=== PATIENT | female | born 1970 | race Caucasian/White ===

== ENCOUNTER 2019-02-11 08:11 | Day surgery (SDC) | payer BC ==
--- NOTE | 2019-02-06 16:53 | HP ---
PREOPERATIVE HISTORY AND PHYSICAL: DATE OF SURGERY/ADMISSION: 02/11/19 [facility] DATE OF OFFICE VISIT/ENCOUNTER: 01/15/19 ATTENDING SURGEON: Kathy Gorman MD * (DICTATED BY CELINA NAVARRO) PROCEDURE: Left wrist de Quervain's tenosynovitis. HISTORY OF PRESENT ILLNESS: This is a 49-year-old female who complains of bilateral wrist pain, worse on the left than on the right, ongoing for over a year and a half. She denies any injury. She denies any numbness or tingling associated with the pain. She thinks may be the pain started as a result of doing some very aggressive yoga. She has failed conservative treatment including physical therapy and cortisone injections. She has been diagnosed with de Quervain's tenosynovitis. She would like to proceed with a surgery for the left wrist at this time in the form of a de Quervain's release. PAST MEDICAL HISTORY: History of angioedema. PAST SURGICAL HISTORY: 1. . 2. [place] teeth extraction. CURRENT MEDICATIONS: Estrogen replacement and progesterone. ALLERGIES: No known drug allergies. FAMILY MEDICAL HISTORY: Diabetes, heart disease, Alzheimer's. 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 She is a former smoker. She quit 3-1/2 years ago. Prior to that, she smoked a pack per day for 20 years. She does admit to smoking marijuana on occasion and she drinks alcohol on occasion. REVIEW OF SYSTEMS: Negative for general, cephalic, cardiovascular, respiratory , GI/, other musculoskeletal, integumentary, endocrine, neurologic and hematologic symptoms. Infectious disease: Negative for MRSA, hepatitis C, HIV. PHYSICAL EXAMINATION GENERAL: Well-developed, well-nourished 49-year-old female, in no acute distress. VITAL SIGNS: Height 5 feet 2 inches, weight 130 pounds, pulse rate 56, blood pressure 100/74. HEENT: Normocephalic, atraumatic. Pupils are equal, round and reactive to light and accommodation. Extraocular movements are intact. NECK: Supple. No palpable lymph nodes. Throat is clear. PULMONARY: Lungs are clear to auscultation bilaterally. No wheezes, rales, or rhonchi. CARDIOVASCULAR: Regular rate and rhythm. S1, S2. No murmurs, rubs, or gallop. No edema. ABDOMEN: Positive bowel sounds, soft, nontender. MUSCULOSKELETAL: On exam of bilateral wrists, on the left, there is mild subcutaneous wasting and a little bit of pigment change in the area of the previous injection. She has significant tenderness to palpation at the radial styloid process on the left, minimal tenderness on the right. Positive Niurka's test on the left, negative on the right. She has good motion in her fingers and wrist motion in flexion and extension is normal. Neurovascular function is intact. NEUROLOGICAL: Alert and oriented x3. Cranial nerves II through XII are intact. Sensation is intact to light touch. IMAGING STUDIES: X-rays AP, lateral and oblique of the left thumb show no bony abnormality, no degenerative arthritis. IMPRESSION: Left de Quervain's tenosynovitis. PLAN: The patient is scheduled to undergo a left wrist de Quervain's release with Dr. Gorman on 02/11/19. She will return to the office 10 days postop for followup and suture removal. A prescription for Ultracet was e-scribed to the patient's pharmacy for postoperative pain management. CELINA NAVARRO [id number]/[facility] #: [id number] MTDJohn
[~2019-02-11 08:11] MED LIST: Buffered Lidocaine 1% SYRIN* 1 ML/SYRINGE INTRADERM ONE; Famotidine IV* 10 MG/ML 2 ML (20 mg) IV ONE; Lactated Ringers 1000 ML Bag* 1,000 ML IV SCH
[2019-02-11] MEDS ORDERED: Famotidine IV* 10 MG/ML 2 ML (20 mg) ONE (08:23)
[2019-02-11] MEDS ORDERED: Midazolam* 1 MG/ML 5 ML VIAL (5 MG) ONE (09:11)
[2019-02-11] MEDS ORDERED: Propofol* 10 MG/ML 20 ML BTL ONE (09:28)
[2019-02-11] MEDS ORDERED: Ketorolac INJ* 30 MG/ML 1 ML VIAL ONE (09:28)
[2019-02-11] MEDS ORDERED: Ondansetron INJ* 2 MG/ML VIAL ONE (09:28)
[2019-02-11] MEDS ORDERED: Lidocaine 2% PF * 5 ML VIAL ONE (09:28)
[2019-02-11] MEDS ORDERED: Acetaminophen TAB* 325 MG PO PRN (09:42)
[2019-02-11 11:12] VITALS: BP 128/76
[2019-02-11] MEDS ORDERED: Lidocaine 1% INJ* 10 MG/ML 30 ML SDV ONE (14:31)
--- NOTE | 2019-02-11 21:08 | OP ---
DATE OF OPERATION: 02/11/19 [facility] DATE OF : 68 SURGEON: Kathy Gorman MD ENGLISH LANGUAGE ARTS TEACHER: CELINA Choi ANESTHESIA: Local MAC. PRE-OP DIAGNOSIS: Left de Quervain's tenosynovitis. POST-OP DIAGNOSIS: Left de Quervain's tenosynovitis. OPERATIVE PROCEDURE: de Quervain's release in the left wrist. ESTIMATED BLOOD LOSS: Zero. TOURNIQUET TIME: Approximately 10 minutes. INDICATIONS FOR PROCEDURE: Livia is a 49-year-old female, who has pain on the radial aspect of her left wrist, which has persisted despite conservative treatment. She presents for de Quervain's release after failing conservative treatment. DESCRIPTION OF PROCEDURE: The patient was brought to the operating room, was given a sedation anesthetic and a local infiltration of 10 cc of 1% plain lidocaine centered at the tip of the radial styloid. The skin of her left upper extremity was prepped and draped in the usual sterile fashion. The hand and forearm were exsanguinated and the tourniquet elevated to 250 mmHg. A longitudinal incision was made centered at the radial styloid and dissected through the subcutaneous tissue down to the first dorsal compartment. Branches of the radial sensory nerve were located and retracted by the surgical consultant , Shelby Herrera. The first dorsal compartment was incised longitudinally, completely releasing the tendons. There were multiple slips of the APL tendon. The wound was irrigated and the skin edges reapproximated with 4-0 nylon suture. The wound was dressed with Xeroform, 4x4, Webril, and an Deon wrap. The patient tolerated the procedure well and was brought to the recovery room in good condition. [id number]/[facility] #: [id number] [facility]
== END 2019-02-11 10:58 | disposition home or self-care (01) ==
LOC: OREAST 08:11
PROVIDERS: ATTEND Orthopaedic Surgery
DX: M65.4 Radial styloid tenosynovitis [de Quervain] (principal); Z87.891 Personal history of nicotine dependence
CPT/HCPCS: J1885; J2250; J2405; J2704

== ENCOUNTER 2019-10-19 11:35 | Emergency (ER) | payer BC ==
[2019-10-19] MEDS ORDERED: Ketorolac INJ* 30 MG/ML 1 ML VIAL IV PUSH ONE (11:53)
--- NOTE | 2019-10-19 11:56 | ED ---
Abdominal Pain/Female - HPI Summary HPI Summary: 49 y/o female presented to [facility] complaining of generalized abdominal pain characterized as "hollow" that has been present since 10/17/19 evening. Patient notes that she has some relief of pain on 10/18/19 but states that the pain returned this morning 10/19/19. The patient notes feeling bloated and nauseous, but has not vomited. She also notes excessive yawning. Urination is normal and stools are loose but otherwise bowel movements are normal. Palpation does not aggravate her abdominal pain. The patient notes that she may suspect an ulcer but has no history of such. - History of Current Complaint Chief Complaint: EDAbdPain Stated Complaint: LOWER ABD PAIN Time Seen by Provider: 10/19/19 11:46 Hx Obtained From: Patient Hx Last Menstrual Period: 1 week ago Onset/Duration: Lasting Days, Still Present Timing: Days Severity Currently: Severe Pain Intensity: 7 Pain Scale Used: 0-10 Numeric Location: Diffuse Character: Other: - "hollow" Associated Signs and Symptoms: Positive: Nausea, Other: - bloating. Negative: Constipation, Urinary Symptoms, Vomiting, Diarrhea - "loose stools" are noted Allergies/Adverse Reactions: Allergies Allergy/AdvReac Type Severity Reaction Status Date / Time No Known Allergies Allergy Verified 02/11/19 08:27 PMH/Surg Hx/FS Hx/Imm Hx Endocrine/Hematology History: Denies: Hx Diabetes, Hx Thyroid Disease Cardiovascular History: Denies: Hx Hypertension, Other Cardiovascular Problems/Disorders Respiratory History: Denies: Hx Asthma, Hx Chronic Obstructive Pulmonary Disease (COPD), Hx Pulmonary Embolism, Other Respiratory Problems/Disorders GI History: Denies: Hx Ulcer, Other GI Disorders History: Reports: Other Problems/Disorders Musculoskeletal History: Reports: Hx Tendonitis - Tenosynovitis left wrist- DeQuervain's Denies: Other Musculoskeletal History Sensory History: Reports: Hx Contacts or Glasses - Contacts and glasses-will wear glasses day of surgery Denies: Hx Hearing Aid Opthamlomology History: Reports: Hx Contacts or Glasses - Contacts and glasses- will wear glasses day of surgery Neurological History: Denies: Other Neuro Impairments/Disorders Psychiatric History: Reports: Hx Anxiety - history of, not recent - Cancer History Hx Chemotherapy: No Hx Radiation Therapy: No - Surgical History Surgery Procedure, Year, and Place: C Section 1993 & 1997. [place] Teeth Extractions (2 teeth) 2019 Hx Anesthesia Reactions: No Infectious Disease History: No Infectious Disease History: Denies: Hx Clostridium Difficile, Hx Hepatitis, Hx Human Immunodeficiency Virus (HIV), Hx of Known/Suspected MRSA, Hx Shingles, Hx Tuberculosis, Hx Known/ Suspected VRE, Hx Known/Suspected VRSA, History Other Infectious Disease, Traveled Outside the [place] in Last 30 Days - Family History Known Family History: Positive: Hypertension - mother, Diabetes - both parents - Social History Alcohol Use: Weekly Alcohol Amount: 1-2 glasses of wine two times a week Substance Use Type: Reports: None Smoking Status (MU): Former Smoker Type: Cigarettes Amount Used/How Often: Smoked for 20 years Length of Time of Smoking/Using Tobacco: 20+ years Have You Smoked in the Last Year: No Review of Systems Positive: Other - excessive yawning Positive: Abdominal Pain - "hollow", Nausea, Other - bloating. Negative: Vomiting, Diarrhea - "loose stools" are noted All Other Systems Reviewed And Are Negative: Yes Physical Exam - Summary Physical Exam Summary: Appearance: The patient is well-nourished in no acute distress and in no acute pain. Skin: The skin is warm and dry, and skin color reflects adequate perfusion. HEENT: The head is normocephalic and atraumatic. The pupils are equal and reactive. The conjunctivae are clear and without drainage. Nares are patent and without drainage. Mouth reveals moist mucous membranes, and the throat is without erythema and exudate. The external ears are intact. The ear canals are patent and without drainage. The tympanic membranes are intact. Neck: The neck is supple with full range of motion and non-tender. There are no carotid bruits. There is no neck vein distension. Respiratory: Chest is non-tender. Lungs are clear to auscultation and breath sounds are symmetrical and equal. Cardiovascular: Heart is regular rate and rhythm. There is no murmur or rub auscultated. There is no peripheral edema and pulses are symmetrical and equal. Abdomen: The abdomen is soft and non-tender. There are normal bowel sounds heard in all four quadrants and there is no organomegaly palpated. Musculoskeletal: There is no back tenderness noted. Extremities are non-tender with full range of motion. There is good capillary refill. There is no peripheral edema or calf tenderness elicited. Neurological: Patient is alert and oriented to person, place and time. The patient has symmetrical motor strength in all four extremities. Cranial nerves are grossly intact. Deep tendon reflexes are symmetrical and equal in all four extremities. Psychiatric: The patient has an appropriate affect and does not exhibit any anxiety or depression. Triage Information Reviewed: Yes Vital Signs On Initial Exam: Initial Vitals Temp Pulse Resp BP Pulse Ox 98.3 F 58 18 126/103 99 10/19/19 11:38 10/19/19 11:38 10/19/19 11:38 10/19/19 11:38 10/19/19 11:38 Vital Signs Reviewed: Yes Procedures - Sedation Patient Received Moderate/Deep Sedation with Procedure: No Diagnostics - Vital Signs Vital Signs Temp Pulse Resp BP Pulse Ox 10/19/19 11:38 98.3 F 58 18 126/103 99 - Laboratory Result Diagrams: 10/19/19 11:58 10/19/19 11:58 Lab Statement: Any lab studies that have been ordered have been reviewed, and results considered in the medical decision making process. - CT abdominal/pelvis CT Interpretation Completed By: Radiologist Summary of CT Findings: IMPRESSION: 1. There is a punctate calcification at the right kidney lower pole but no signs of. hydronephrosis and no renal calculi identified in either ureter or in the urinary bladder. 2. No acute inflammatory change of the gastrointestinal tract within the limitations of a non-IV or oral contrast CT. This report was reviewed by the ED physician. Abdominal Pain Fem Course/Dx - Course Course Of Treatment: Labs were obtained and she was given IV Toradol. Labs returned within normal limits but she did not pain relief and therefore CT scan was obtained. It was generally unremarkable with some suggestion of pelvic venous congestion. I gave her some instructions about pelvic venous congestion however I'm not at all certain that is causing her current two day pain. I recommended symptomatic treatment and close follow-up. - Diagnoses Provider Diagnoses: Abdominal pain Discharge ED - Sign-Out/Discharge Documenting (check all that apply): Patient Departure - dc - Discharge Plan Condition: Stable Disposition: HOME Prescriptions: HYDROcodone/ACETAMIN 5-325 MG* [[place] 5-325 TAB*] 1 tab PO Q6H PRN #20 tab MDD 4 PRN Reason: Pain Ondansetron ODT TAB* [Zofran Odt TAB*] 4 mg PO Q6H PRN #20 tab.odt PRN Reason: Nausea/Vomiting Patient Education Materials: Abdominal Pain (ED) Referrals: Ariana Covarrubias MD [Primary Care Provider] - - Billing Disposition and Condition Condition: STABLE Disposition: Home - Attestation Statements Document Initiated by Christopher: Yes Documenting Scribe: BELLA STRICKLAND Provider For Whom Christopher is Documenting (Include Credential): KARTIK LYNN MD Scribe Attestation: IBELLA, scribed for KARTIK LYNN MD on 10/20/19 at 1448. Scribe Documentation Reviewed: Yes Provider Attestation: The documentation as recorded by the BELLA michel accurately reflects the service I personally performed and the decisions made by me, KARTIK LYNN MD Status of Scribe Document: Viewed
[2019-10-19 12:08] LABS: ABS Eosinophils 0.1 10^3/ul (0-0.6); ABS Lymphocytes 1.4 10^3/ul (1.0-4.8); ABS Monocytes 0.7 10^3/ul (0-0.8); Eosinophil % 0.7 %; Hematocrit 43 % (35-47); Hemoglobin 14.3 g/dL (12.0-16.0); Lymphocyte % 16.8 %; Mean Corpuscular HGB Conc 34 g/dL (31-36); Mean Corpuscular Hemoglobin 32 pg (27-31); Mean Corpuscular Volume 94 fL (80-97); Mean Platelet Volume 8.6 fL (7.4-10.4); Platelet Count 249 10^3/uL (150-450); Red Blood Count 4.54 10^6 /uL (3.70-4.87); Red Cell Distribution Width 13 % (10-15); White Blood Count 8.2 10^3/uL (3.5-10.8)
[2019-10-19 12:29] LABS: ALT 23 U/L (7-52); AST 27 U/L (13-39); Albumin 4.5 g/dL (3.2-5.2); Albumin/Globulin Ratio 1.8 (1-3); Alkaline Phosphatase 56 U/L (34-104); Anion Gap 9 mmol/L (2-11); BUN/Creatinine Ratio 14.8 (8-20); Blood Urea Nitrogen 13 mg/dL (6-24); C Reactive Protein < 1.00 mg/L (<8.01); CO2 Carbon Dioxide 25 mmol/L (22-32); Calcium 9.5 mg/dL (8.6-10.3); Chloride 103 mmol/L (101-111); EGFR African American 82.3 (>60); Globulin 2.5 g/dL (2-4); Glucose 127 mg/dL (70-100); Potassium 4.2 mmol/L (3.5-5.0); Sodium 137 mmol/L (135-145)
[2019-10-19 13:23] LABS: Urine Appearance Clear; Urine Bilirubin Negative (Negative); Urine Blood Negative (Negative); Urine Color Yellow; Urine Glucose Negative (Negative); Urine Ketones Trace (Negative); Urine Nitrite Negative (Negative); Urine Protein Negative (Negative); Urine Specific Gravity 1.014 (1.010-1.030); Urine Urobilinogen Negative (Negative)
[2019-10-19] MEDS ORDERED: Ondansetron ODT TAB* 4 MG PO ONE (15:25)
[2019-10-19 16:46] VITALS: BP 157/91
== END 2019-10-19 16:45 | disposition home or self-care (01) ==
LOC: ED 11:35
DX: R10.9 Unspecified abdominal pain (principal); Z87.891 Personal history of nicotine dependence
CPT/HCPCS: 36415; 74176; 80053; 81003; 83605; 83690; 85025; 86140; 96374; 99283; A9270-GY; J1885